=== PATIENT | female | born 1975 ===

== ENCOUNTER 2017-08-10 15:21 | Emergency (ER) | payer SELFPAY ==
[2017-08-10 16:03] LABS: BASO % 0.3 % (0.0-2.0); EOS % 0.2 % (0.0-4.0); LYMPH % 9.3 % (20.0-40.0); MEAN CELL VOLUME 93.5 fL (81.0-99.0); MEAN CORPUSCULAR HEMOGLOBIN 32.1 pg (27.0-31.0); MEAN CORPUSCULAR HGB CONC 34.3 g/dL (33.0-37.0); MEAN PLATELET VOLUME 9.9 fL (7.2-11.7); MONO # 0.6 K/uL (0.0-0.8); MONO % 5.5 % (0.0-10.0); NEUT # 8.9 K/uL (1.8-7.0); NEUT % 84.7 % (50.0-75.0); PLATELET COUNT 248 K/uL (130-400); RBC 4.06 Mil/uL (3.80-5.20); RED CELL DISTRIBUTION WIDTH 13.7 % (11.5-14.5); WHITE BLOOD COUNT 10.4 K/uL (4.8-10.8)
[2017-08-10 16:11] LABS: INR 1.1; PROTHROMBIN TIME 11.5 SECONDS (9.7-12.2)
[2017-08-10 16:16] LABS: ALB/GLOB RATIO 1.1 (1.0-2.1); ALBUMIN 4.1 g/dL (3.5-5.0); ALT/SGPT 32 U/L (9-52); AST/SGOT 29 U/L (14-36); BLOOD UREA NITROGEN 13 mg/dL (7-17); CALCIUM 9.5 mg/dl (8.6-10.4); GFR AFRICAN-AMERICAN > 60; GFR NON-AFRICAN AMERICAN > 60; LIPASE 66 U/L (23-300)
--- NOTE | 2017-08-10 16:45 | C.PDOC ---
History Of Present Illness 42 y/o female presents to ED with c/o suprapubic abdominal pain since this morning associated with mild dysuria. reports unable to urinate "full amount". Patient denies fever, chills, nausea, vomiting, hematuria, back pain or any other complaints at this time. Time Seen by Provider: 08/10/17 15:36 Chief Complaint (Nursing): Abdominal Pain History Per: Patient History/Exam Limitations: no limitations Onset/Duration Of Symptoms: Days Current Symptoms Are (Timing): Still Present Location Of Pain/Discomfort: Suprapubic Past Medical History Reviewed: Historical Data, Nursing Documentation, Vital Signs Vital Signs: Last Vital Signs Temp 98.2 F 08/10/17 19:08 Pulse 86 08/10/17 19:08 Resp 18 08/10/17 19:08 BP 101/60 08/10/17 19:08 Pulse Ox 98 08/10/17 19:08 - Medical History PMH: No Chronic Diseases Surgical History: Appendectomy Family History: States: No Known Family Hx - Social History Hx Alcohol Use: No Hx Substance Use: No - Immunization History Hx Tetanus Toxoid Vaccination: No Hx Influenza Vaccination: No Hx Pneumococcal Vaccination: No Review Of Systems Constitutional: Negative for: Fever, Chills Cardiovascular: Negative for: Chest Pain Respiratory: Negative for: Shortness of Breath Gastrointestinal: Positive for: Abdominal Pain. Negative for: Nausea, Vomiting Genitourinary: Positive for: Dysuria Skin: Negative for: Rash Physical Exam - Physical Exam Appears: Non-toxic, No Acute Distress Skin: Warm, Dry, No Rash Head: Atraumatic, Normacephalic Eye(s): bilateral: Normal Inspection Oral Mucosa: Moist Neck: Normal ROM, Supple Cardiovascular: Rhythm Regular Respiratory: Normal Breath Sounds, No Rales, No Rhonchi, No Wheezing Gastrointestinal/Abdominal: Soft, Tenderness (Suprapubic), Distention, No Guarding, No Rebound Back: No CVA Tenderness, No Vertebral Tenderness Extremity: Normal ROM, Capillary Refill (<2 seconds) Neurological/Psych: Oriented x3, Normal Speech, Normal Cognition ED Course And Treatment - Laboratory Results Result Diagrams: 08/10/17 15:59 08/10/17 15:59 O2 Sat by Pulse Oximetry: 100 (RA) Pulse Ox Interpretation: Normal Medical Decision Making Medical Decision Making: exam with palpable lower mass. rossi placed iwth [address]/us shows large fibroid. suspect retention to large fibroid. offed pt to be dc with leg bag, but pt refuses, states she wishes for rossi to be removed. advised with chest pain coordinator of possible reoccurance. advise ooutpt fu. Disposition - Disposition Referrals: [facility] [Outside] [facility]Outside] [facility] [[facility]] Audie Alcala Jr., MD [Staff Provider] - Disposition: HOME/ ROUTINE Disposition Time: 07:00 Condition: STABLE Additional Instructions: please follow up with your doctor/specialist. return to er with worsening symptoms or concerns. Instructions: Myomectomy, Open Surgery, Acute Abdomen (Belly Pain), Urinary Retention Forms: [employer] (Irish) Print Language: INDIAN - Clinical Impression Clinical Impression: Fibroid, Urinary retention - Scribe Statement The provider has reviewed the documentation as recorded by the [employer] [place] All medical record entries made by the [employer] were at my direction and personally dictated by me. I have reviewed the chart and agree that the record accurately reflects my personal performance of the history, physical exam, medical decision making, and the department course for this patient. I have also personally directed, reviewed, and agree with the discharge instructions and disposition.
[2017-08-10 16:58] LABS: BANDS 2 % (0-2); HYPOCHROMIC SLIGHT; LARGE PLATELETS PRESENT; LYMPHOCYTE 13 % (20-40); MICROCYTOSIS SLIGHT; MONOCYTE 8 % (0-10); NEUTROPHIL 77 % (50-75); OVALOCYTES SLIGHT; PLATELET ESTIMATE NORMAL (NORMAL); TOTAL CELLS COUNTED 100
[2017-08-10 17:10] LABS: HCG,QUALITATIVE URINE NEGATIVE (NEGATIVE)
[2017-08-10 17:15] LABS: SQUAMOUS EPITHIAL 15 /hpf (0-5); URINE BACTERIA MANY (<OCC); URINE BILIRUBIN NEGATIVE (NEGATIVE); URINE CLARITY Hazy (Clear); URINE COLOR Yellow (YELLOW); URINE GLUCOSE (UA) NORMAL (Normal); URINE LEUKOCYTE ESTERASE NEG Leu/uL (Negative); URINE PROTEIN NEGATIVE (NEGATIVE); URINE UROBILINOGEN NORMAL mg/dL (0.2-1.0)
[2017-08-10 17:16] LABS: URINE BLOOD NEGATIVE (NEGATIVE)
--- NOTE | 2017-08-10 18:47 | CT ---
PROCEDURE: CT Abdomen and Pelvis without intravenous contrast HISTORY: abd pain, urinary retention COMPARISON: Comparison is made with the previous same-day ultrasound of the pelvis. TECHNIQUE: Axial and reformatted coronal and sagittal CT images of the abdomen and pelvis were obtained without IV or oral contrast administration.. Contrast dose: 0 Radiation dose: Total exam DLP = 319.93 mGy-cm. This CT exam was performed using one or more of the following dose reduction techniques: Automated exposure control, adjustment of the mA and/or kV according to patient size, and/or use of iterative reconstruction technique. FINDINGS: LOWER THORAX: No evidence of acute pathology or suspicious mass at the lung bases. LIVER: Mild hepatomegaly is noted. . No gross lesion or ductal dilatation. GALLBLADDER AND BILE DUCTS: Suspicious for gallstones. No CT evidence of acute cholecystitis. PANCREAS: Unremarkable. No gross lesion or ductal dilatation. SPLEEN: Unremarkable. ADRENALS: Unremarkable. No mass. KIDNEYS AND URETERS: Unremarkable. No hydronephrosis. No solid mass. VASCULATURE: Unremarkable. No aortic aneurysm. BOWEL: Unremarkable. No obstruction. No gross mural thickening. APPENDIX: No evidence of appendicitis. PERITONEUM: Unremarkable. No free fluid. No free air. LYMPH NODES: Unremarkable. No enlarged lymph nodes. BLADDER: Barakat catheter in the bladder. REPRODUCTIVE: The uterus is heterogeneous moderately enlarged extending to the lower abdomen. There is 3.9 centimeter cyst seen posterior and to the right to the uterus may represent hemorrhagic cyst. BONES: No acute fracture. Thoracic and lumbar scoliosis is noted. OTHER FINDINGS: None. IMPRESSION: No evidence of nephrolithiasis or hydronephrosis. Heterogeneous moderately enlarged uterus likely contains fibroids. Other etiology such as endometrial neoplasm is not totally excluded in this noncontrast study. Further assessment by MRI is suggested. Complex cystic lesion at the right posterior pelvis may represent hemorrhagic cyst endometrioma or adnexal cyst. Gallstones without evidence of acute cholecystitis.
--- NOTE | 2017-08-10 18:58 | US ---
HISTORY: pelvic pain COMPARISON: None available. TECHNIQUE: Transabdominal and endovaginal ultrasound examination of the pelvis was performed. FINDINGS: UTERUS: Measures 14.2 x 10 x 11.2 cm. The uterus is retroverted. Diffuse heterogeneous echotexture of the uterus is noted. There is heterogeneous soft tissue mass in the uterine measures 10.7 x 7.8 x 8.8 centimeter may represent large fibroid. ENDOMETRIUM: Measures 8.7 mm in diameter. Unremarkable. CERVIX: No cervical abnormality identified. RIGHT OVARY: Measures 5.7 x 4.3 x 5.9 cm. No solid mass. Normal flow. There is a 4.4 x 3.8 x 3.7 centimeter complex cyst contains low-level echo noted at the right adnexa may represent hemorrhagic cyst. LEFT OVARY: Measures 5.1 x 3.2 x 7 cm. No solid mass. Normal flow. There are 2 cysts seen at the left adnexa with the largest cyst measures 5.5 x 3.5 x 4.5 centimeter. FREE FLUID: No significant free fluid noted. OTHER FINDINGS: Barakat catheter seen in the bladder. IMPRESSION: Moderately enlarged heterogeneous uterus. Soft tissue mass at the uterus measures up to 10.7 centimeter likely represent large fibroid. Complex cyst at the right ovary measures 4.4 centimeter may represent hemorrhagic cyst. Two anechoic simple cysts at the left ovary with the largest cyst measures 5.5 centimeter.
[2017-08-10 19:09] VITALS: BP 101/60; PULSE 86; RESP 18; TEMP 98.2
[2017-08-10 22:10] VITALS: O2SAT 100
== END 2017-08-10 20:04 | disposition home or self-care (01) ==
LOC: C.ER 15:21
DX: D25.9 Leiomyoma of uterus, unspecified (principal); R33.9 Retention of urine, unspecified

== ENCOUNTER 2018-07-10 13:57 | Outpatient (CLI) | payer OTHER | END 2018-07-10 13:58 | disposition home or self-care (01) | LOC: C.USIC 13:57 | DX: D25.9 Leiomyoma of uterus, unspecified (principal) ==